=== PATIENT | male | born 1995 | race Hispanic/Latino ===

== ENCOUNTER 2016-10-17 12:05 | Emergency (ER) | payer BC, SELFPAY ==
[2016-10-17] MEDS ORDERED: Ketorolac Tromethamine 60 MG/2 ML VIAL ONE (13:28)
--- NOTE | 2016-10-17 13:36 | RAD ---
LEFT SHOULDER 3 VIEWS: Date: 10/17/16 HISTORY: Shoulder joint pain. FINDINGS: No fracture or dislocation. AC joint normally aligned. No osseous abnormality. IMPRESSION: Unremarkable left shoulder. POS: [id number]
== END 2016-10-17 13:50 | disposition home or self-care (01) ==
LOC: MADERS 12:05
DX: S43.402A Unspecified sprain of left shoulder joint, initial encounter (principal); I10 Essential (primary) hypertension; X58.XXXA Exposure to other specified factors, initial encounter
CPT/HCPCS: 96372; J1885

== ENCOUNTER 2021-12-02 09:52 | Emergency (ER) | payer OTHER | END 2021-12-02 10:29 | disposition home or self-care (01) | LOC: MADERS 09:52 | DX: M54.50 Low back pain, unspecified (principal); F17.210 Nicotine dependence, cigarettes, uncomplicated; X50.0XXA Overexertion from strenuous movement or load, initial encounter; Y92.89 Other specified places as the place of occurrence of the external cause; Y99.0 Civilian activity done for income or pay | CPT/HCPCS: 99283 ==

== ENCOUNTER 2025-04-18 08:43 | Emergency (ER) | payer OTHER, SELFPAY ==
[2025-04-18] MEDS ORDERED: Iopamidol 370 76% 100 ML VIAL ONE (09:00)
[2025-04-18] MEDS ORDERED: Lidocaine Viscous Sol 2% 15 ml UD Cup ONE (09:04)
[2025-04-18] MEDS ORDERED: Mag-Al 1200 mg/1200 mg/30 ML UDCUP ONE (09:04)
[2025-04-18 09:53] LABS: Hematocrit 52.7 % (42.0-52.0); Hemoglobin 16.7 g/dL (14.0-18.0); Mean Corpuscular Hemoglobin 27.2 pg (27.0-31.0); Mean Corpuscular Volume 85.7 fl (78.0-98.0); Platelet Count 284 10x3/uL (130-400); Red Blood Cell (RBC) Count 6.15 mill/uL (4.70-6.10); White Blood Cell (WBC) Count 15.7 10x3/uL (4.8-10.8)
[2025-04-18 09:56] LABS: MDiff Complete? YES; Manual Diff?? YES
[2025-04-18 09:57] LABS: Platelet Adequacy Comment Appears Adequate
[2025-04-18 10:00] LABS: ALT (SGPT) 56 U/L (Less than 45); AST (SGOT) 36 U/L (11-34); Albumin 4.9 g/dL (3.1-4.5); Alkaline Phosphatase 58 U/L (40-110); Anion Gap 20 mmol/L (10-20); BUN (Urea Nitrogen) 14 mg/dL (8.9-20.6); Bilirubin, Total 0.6 mg/dL (0.3-1.2); Calc. Creatinine Clearance 0 mL/min (70-130); Calcium 9.8 mg/dL (7.8-10.44); Carbon Dioxide 19 mmol/L (22-29); Chloride 107 mmol/L (98-107); Globulin 3.2 g/dL (2.4-3.5); Glucose 114 mg/dL (70-105); Lipase 69 U/L (8-78); Potassium 4.6 mmol/L (3.5-5.1); Sodium 141 mmol/L (136-145)
[2025-04-18] MEDS ORDERED: Ketorolac Tromethamine 30 MG (1 mL) VIAL ONE (10:49)
== END 2025-04-18 11:39 | disposition short-term general hospital (02) ==
LOC: MADERS 08:43
DX: K35.80 Unspecified acute appendicitis (principal); F17.210 Nicotine dependence, cigarettes, uncomplicated
CPT/HCPCS: 74177; 80053; 83690; 85025; 96361; 96365; 96375; 96376; J1885; J2270; J2543; J2550; J7120; Q0162; Q9967